=== PATIENT | male | born 1995 | race Caucasian/White ===

== ENCOUNTER 2021-06-28 14:20 | Emergency (ER) | payer OTHER ==
[~2021-06-28] VITALS: Ht 182.9 cm; Wt 99.1 kg
[2021-06-28] MEDS ORDERED: IBUP100T54 PO (14:24)
[2021-06-28] MEDS ORDERED: ACET-3385 PO (14:24)
[2021-06-28] MEDS ORDERED: METHOCARBAMOL 500 MG TABLET PO ONE (16:15)
[2021-06-28] MEDS ORDERED: KETOROLAC TROMETHAMINE 30 MG/ML VIAL IM ONE (16:15)
[2021-06-28] MEDS ORDERED: CYCL10TA17 PO (16:19)
[2021-06-28] MEDS ORDERED: LIDO1ADH23 TP (16:19)
[2021-06-28] MEDS ORDERED: NAPR-1025 PO (16:19)
[2021-06-28 16:55] VITALS: BP 133/78
== END 2021-06-28 17:30 | disposition home or self-care (01) ==
LOC: EMS 14:20
DX: S29.012A Strain of muscle and tendon of back wall of thorax, initial encounter (principal); M25.512 Pain in left shoulder; F17.210 Nicotine dependence, cigarettes, uncomplicated; X58.XXXA Exposure to other specified factors, initial encounter; Y93.89 Activity, other specified; Y92.89 Other specified places as the place of occurrence of the external cause; Y99.8 Other external cause status
CPT/HCPCS: 96372; 99283; J1885